=== PATIENT | female | born 1955 | race African-American/Black ===

== ENCOUNTER 2022-12-22 18:57 | Emergency (ER) | payer BC, SELFPAY ==
--- NOTE | 2022-12-22 19:09 | ED_ITS ---
HPI - Ear Problem General Chief complaint: Ear Problems Stated complaint: Cotton from Q tip stuck in ear Time Seen by Provider: 12/22/22 19:22 [facility] Social History Social History Advance Directives: No Advance Directives Information Provided: No Physical Exam Vital Signs: Vital Signs: Last Vital Signs Temp 97.6 F 12/22/22 19:11 Pulse 93 12/22/22 19:11 Resp 16 12/22/22 19:11 BP 167/100 H 12/22/22 19:11 Pulse Ox 96 12/22/22 19:11 O2 Del Method 12/22/22 19:11 BMI result Body Mass Index 25.8 Course Course Course Narrative: This is an RME: Additional HPI, ROS, PE not included below will be deferred to primary provider. Patient is a 67-year-old female who presents to the emergency department for evaluation of problem to the left ear. States she was attempting to clean the left ear, and the cotton from the Q-tip is stuck inside. Denies any pain, drainage, decreased hearing to the ear Discharge Plan Discharge Clinical Impression: Acute effusion of left ear, Foreign body sensation in left ear canal Patient Disposition: Home, Self-Care Additional Instructions: Take your medications as prescribed. If you were prescribed antibiotics today, it is important that you take your medication to their entirety, do not skip any doses, do not finish them early. Follow-up with your primary care provider this week. Return to the emergency department with new or worsening symptoms. Such as fevers, chills, chest pain, shortness of breath, nausea, vomiting, dizziness, headache, vision changes, lethargy In case of emergency call 911 Referrals: Adiel Fernandes [Physician] - 1 day Discharge Date/Time: 12/22/22 23:41
[2022-12-22 19:11] VITALS: BP 167/100; PULSE 93; RESP 16; TEMP 36.4; O2SAT 96; BMI 25.8
--- NOTE | 2022-12-22 19:39 | ED.EAR ---
HPI - Ear Problem General Chief complaint: Ear Problems Stated complaint: Cotton from Q tip stuck in ear Time Seen by Provider: 12/22/22 19:22 Source: patient Mode of arrival: ambulatory Limitations: no limitations History of Present Illness HPI Narrative: 67-year-old female with no significant medical history presents to the emergency department complaints of foreign body sensation in left ear, patient tells me she was cleaning her ear with a Q-tip and she thinks she got the cotton part of the Q-tip stuck in her left ear. He tried to take it out herself unsuccessfully. Now reports she has decreased hearing to the left ear and discomfort. Denies fevers, chills, tinnitus, headache, vision changes, dizziness. Review of Systems Review of Systems: Constitutional : No Weight loss, No Fever, No Chills, No Fatigue, No Malaise ENT/Mouth : No sore throat, No Rhinorrhea, + FB sensation in left ear Eyes: No Eye Pain, No Swelling, No Redness Cardiovascular : No Chest Pain, No SOB, No Dyspnea on Exertion, No Orthopnea, No Edema, No Palpitations Respiratory : No Cough, No Sputum, No Wheezing Gastrointestinal : No Nausea, No Vomiting, No Diarrhea, No Constipation, No abdominal Pain, No Hematochezia, No Melena Genitourinary : No Dysuria, No Urinary Frequency, No Hematuria, Musculoskeletal : No joint pain, No Myalgias, No Joint Swelling Skin : No Skin Lesions, No rash Neuro : No Weakness, No Numbness, No Dizziness, No Headache Psych : No Anxiety/Panic, No Depression All other systems reviewed and are negative Yes all other systems are reviewed and are negative [facility] Past Medical History Attestation statement: The following information was validated with the patient. Source: old records reviewed and nursing notes reviewed Social History Social History Advance Directives: No Advance Directives Information Provided: No Physical Exam Vital Signs: Vital Signs: Last Vital Signs Temp 97.6 F 12/22/22 19:11 Pulse 93 12/22/22 19:11 Resp 16 12/22/22 19:11 BP 167/100 H 12/22/22 19:11 Pulse Ox 96 12/22/22 19:11 O2 Del Method 12/22/22 19:11 BMI result Body Mass Index 25.8 VSS Appearance: Alert.? Oriented X3.? No acute distress.? Head: Normocephalic, atraumatic, no step-offs or deformities Eyes: Pupils equal, round and reactive to light.? Ears: Normal right EC and TM. Left ear with normal EC and slight effusion behind left ear, small amount of cotton noted in the left ear canal however not an entire Q-tip. CVS: Normal heart rate and rhythm.? Respiratory: No respiratory distress.? Breath sounds normal.? Abdomen: Soft and nontender.? Extremities: 5/5 strength to bilateral upper and lower extremities Neuro: Oriented X 3.? No motor deficit.? No sensory deficit. CN 2-12 intact Course Reevaluation(s) Reevaluation #1: Patient left the department without discharge paperwork however I did verbally go over discharge paperwork with her I told her I would give her information on an ears nose and throat doctor Dr. Srinivasan de la torre who could further investigate this foreign body sensation in left ear.. Time: 19:47 Medical Decision Making Medical Decision Making [facility] Narrative: 194 67-year-old female presents with foreign body sensation in left ear, patient tells me she thinks she has a cotton part of her Q-tip in her left ear. Physical exam w/ normal right EC and TM. Left ear with normal EC and slight effusion behind left ear, small amount of cotton noted in the left ear canal however not an entire Q-tip. I used alligator clips and was able to get very small amounts of cotton from the left ear, after doing this patient tells me she is unsatisfied with the amount of cotton that came out she is adamant that she has a full cotton tip in her ear. I explained to her I was unable to visualize an entire cotton tip. I proceeded to irrigate the ear again able to visualize tympanic membrane and ear canal clearly, unable to visualize Q-tip in ear. I had my co-worker Pam Contreras [employer] evaluate patient who also didnt visualize FB in ear. Patient requested for someone else to look as she was admant that something was in ear. Dr. Lu was called to the bedside. He was able to visualize clear landmarks of L ear w/o FB in ear. We all explained to patient that we unable to visualize any more foreign bodies in her ear. She was unsatisfied with this and she was insisting that there was a full constant swab in her ear, I explained to her that maybe her ear canal or ear drum or irritated from her using Q-tips and she may have an abnormal sensation in that ear due to that I also explained her that she has an effusion in her left ear which could also be causing her to feel a foreign body sensation in ear. I reassured her that there is no foreign body in her ear. Patient became very upset when we told her that maybe she should look around in maybe she dropped the Q-tip when she was taking it out of here ear and may be infected was not in her ear to begin with. Patient very upset, got up, left the department without discharge paperwork and stated this was the worst experience of her life and that she should have gone to [facility]. Differential Diagnosis Differential Diagnoses: The differential diagnosis associated with the presentation includes Admission/Observation Consideration of admission/observation: Escalation of care including admission/observation considered Not indicated. Lab Data MDM Lab Attestation statement: I reviewed the patient's lab results. Radiology Impression Discussion of test interpretation with radiology: I have reviewed the radiologist's reading. Core Measures AMI core measures followed: Yes Measure exclusions: not indicated Discharge Plan Discharge Clinical Impression: Acute effusion of left ear, Foreign body sensation in left ear canal Patient Disposition: Home, Self-Care Additional Instructions: Take your medications as prescribed. If you were prescribed antibiotics today, it is important that you take your medication to their entirety, do not skip any doses, do not finish them early. Follow-up with your primary care provider this week. Return to the emergency department with new or worsening symptoms. Such as fevers, chills, chest pain, shortness of breath, nausea, vomiting, dizziness, headache, vision changes, lethargy In case of emergency call 911 Referrals: Adiel Fernandes [Physician] - 1 day
== END 2022-12-22 23:41 | disposition home or self-care (01) ==
PROVIDERS: Emergency Provider Internal Medicine; PCP Internal Medicine
DX: H83.02 Labyrinthitis, left ear (principal)
CPT/HCPCS: 99281